=== PATIENT | male | born 1990 | race Caucasian/White ===

== ENCOUNTER 2020-09-05 16:03 | Emergency (ER) | payer OTHER | END 2020-09-05 16:39 | disposition home or self-care (01) | LOC: JVIRT 16:03 | DX: Z20.822 Contact with and (suspected) exposure to COVID-19 (principal) | CPT/HCPCS: C9803; G2251-GT; Q3014-GT; U0003 ==

== ENCOUNTER 2023-06-02 18:47 | Emergency (ER) | payer BC, OTHER ==
[2023-06-02 19:17] VITALS: BP 140/98; PULSE 105; RESP 17; TEMP 98.4; BMI 30.8
== END 2023-06-02 20:28 | disposition home or self-care (01) ==
LOC: FER 18:47
DX: R00.2 Palpitations (principal); R00.0 Tachycardia, unspecified; R07.2 Precordial pain
CPT/HCPCS: 71046-TC-FY; 93005; 99284-25